=== PATIENT | male | born 1975 | race Caucasian/White ===

== ENCOUNTER 2017-04-24 11:25 | Emergency (ER) | payer BC ==
[~2017-04-24] VITALS: Ht 177.8 cm; Wt 117.9 kg
[2017-04-24 11:50] VITALS: BP 125/82
[2017-04-24] MEDS ORDERED: SULF1TAB24 PO (12:23)
[2017-04-24] MEDS ORDERED: NAPR500T PO (12:24)
--- NOTE | 2017-04-24 12:24 | PHYS DOC ---
Past Medical History Past Medical History: No Pertinent History Past Surgical History: No Surgical History Alcohol Use: None Drug Use: None Adult General Chief Complaint Chief Complaint: INSECT BITE [facility] HPI Patient is a 41 year old male presents to the emergency department with complaints of an insect bite to the right upper back. He states 2 days ago he believes he was bitten by an insect. He states yesterday his sister squeezed on the site and there was a small amount of purulent discharge. He states today the site is more tender and seems of gotten bigger. He reports no fever, no headache, lightheadedness, nausea, no vomiting. Review of Systems Review of Systems Constitutional: Denies fever or chills [] Eyes: Denies change in visual acuity, redness, or eye pain [] HENT: Denies nasal congestion or sore throat [] Respiratory: Denies cough or shortness of breath [] Cardiovascular: No additional information not addressed in HPI [] GI: Denies abdominal pain, nausea, vomiting, bloody stools or diarrhea [] : Denies dysuria or hematuria [] Musculoskeletal: Denies back pain or joint pain [] Integument: Insect bite Neurologic: Denies headache, focal weakness or sensory changes [] Endocrine: Denies polyuria or polydipsia [] Allergies Allergies Allergies Coded Allergies Type Severity Reaction Last Updated Verified No Known Drug Allergies 05/22/15 No Physical Exam Physical Exam Constitutional: Well developed, well nourished, no acute distress, non-toxic appearance. [] Skin: Warm, dry, right upper back, 2 cm area of erythema with surrounding 2 cm of induration. There is a central pustule. There is no fluctuance. Patient has no lymphadenopathy Current Patient Data Vital Signs Vital Signs Date Time Temp Pulse Resp B/P (MAP) Pulse Ox O2 Delivery O2 Flow Rate FiO2 04/24/17 11:50 98.1 94 18 95 Room Air 98.1 EKG EKG [] Radiology/Procedures Radiology/Procedures The wound was cleansed with Betadine. The small pustule ruptured. There was no further drainage. [] Course & Med Decision Making Course & Med Decision Making Pertinent Labs and Imaging studies reviewed. (See chart for details) [] Dragon Disclaimer Dragon Disclaimer This electronic medical record was generated, in whole or in part, using a voice recognition dictation system. Departure Departure Impression: Primary Impression: Abscess or cellulitis of back Disposition: 01 HOME, SELF-CARE Condition: STABLE Referrals: CLIFFORD LOREDO PA-C (PCP) Patient Instructions: Cellulitis Scripts Naproxen (NAPROSYN) 500 Mg Tablet 500 MG PO BID, #20 TAB Prov: CONNIE DUMONT APRN 04/24/17 Sulfamethoxazole/Trimethoprim (BACTRIM DS TABLET) 1 Each Tablet 1 TAB PO BID, #20 TAB Prov: CONNIE DUMONT APRN 04/24/17 CONNIE DUMONT APRN Apr 24, 2017 12:24
== END 2017-04-24 12:35 | disposition home or self-care (01) ==
LOC: ER 11:25
DX: L02.212 Cutaneous abscess of back [any part, except buttock and flank] (principal); W57.XXXA Bitten or stung by nonvenomous insect and other nonvenomous arthropods, initial encounter; Y93.89 Activity, other specified; Y99.8 Other external cause status; Y92.89 Other specified places as the place of occurrence of the external cause
CPT/HCPCS: 99283

== ENCOUNTER → 2022-02-10 | Outpatient (CLI) | payer BC ==
[~2022-02-10] MED LIST: CELE200C PO; CRESTOR5 MG PO; DULA1.5P SQ; INSU100V37 SQ; LISI10TA16 PO; MAGN400C PO; METF10007 PO; NAPR-683 PO; PERFLUTREN PROTEIN-A MICROSPHR 0.22 MG/ML 3 ML VIAL. IVP ONE; POTA-112 PO; POTA8CAP19 PO; SULF1TAB24 PO; VITA25006 PO
--- NOTE | 2022-02-10 16:38 | CARD ---
MR#: [id number] Date of Study: 02/10/2022 Ordering Physician: FRANCESCA MAYER, Referring Physician: FRANCESCA MAYER, Tech: Karolina Ortez [facility] APPROVED REPORT EXAM: Two-dimensional and M-mode echocardiogram with Doppler and color Doppler. Other Information Quality : Technically LimitedHR: 75bpm Rhythm : NSRTechnically limited study due to body habitus. INDICATION Hypertension/HCVD RISK FACTORS Hypertension Obesity 2D DIMENSIONS RVDd3.6 (2.9-3.5cm)Left Atrium(2D)3.1 (1.6-4.0cm) IVSd1.2 (0.7-1.1cm)Aortic Root(2D)3.0 (2.0-3.7cm) LVDd4.7 (3.9-5.9cm)LVOT Diameter2.3 (1.8-2.4cm) PWd1.2 (0.7-1.1cm)IVSs1.3 (0.8-1.2cm) LVDs3.2 (2.5-4.0cm)FS (%) 32.1 % PWs1.7 (0.8-1.2cm)SV60.9 ml LVEF(%)60.3 (>50%) Aortic Valve AoV Peak Earnest.123.6cm/sAoV VTI21.8cm AO Peak GR.6.1mmHgLVOT Peak Earnest.109.3cm/s LVOT VTI 21.68cmAO Mean GR.3mmHg KOURTNEY (VMAX)3.73pn7LKE (VTI)3.98cm2 Mitral Valve MV E Dqceyham92.8cm/sMV DECEL [id number] MV A Vmemkcyg19.6cm/sMV [id number] E/A Ratio0.9MVA (PHT)2.86cm2 TDI E/Lateral E'4.4E/Medial E'5.8 Pulmonary Valve PV Peak Zusfxbjr72.9cm/sPV Peak Grad.4mmHg LEFT VENTRICLE The left ventricle is normal size. There is normal left ventricular wall thickness. The left ventricu lar systolic function is normal and the ejection fraction is within normal range. Estimated ejection fraction 60%. There is normal LV segmental wall motion. Transmitral Doppler flow pattern is Grade I-a bnormal relaxation pattern. RIGHT VENTRICLE The right ventricle is mildly to moderately dilated. There is normal right ventricular wall thickness . The right ventricular systolic function is normal. ATRIA The left atrium is mildly dilated. The right atrium is mildly dilated. The interatrial septum is inta ct with no evidence for an atrial septal defect or patent foramen ovale as noted on 2-D or Doppler im aging. AORTIC VALVE The aortic valve is normal in structure and function. Doppler and Color Flow revealed no significant aortic regurgitation. There is no significant aortic valvular stenosis. MITRAL VALVE The mitral valve is normal in structure and function. There is no evidence of mitral valve prolapse. There is no mitral valve stenosis. Doppler and Color Flow revealed no mitral valve regurgitation note d. TRICUSPID VALVE The tricuspid valve is normal in structure and function. Doppler and Color Flow revealed no tricuspid valve regurgitation noted. There is no tricuspid valve stenosis. PULMONIC VALVE Doppler and Color Flow revealed no pulmonic valvular regurgitation. There is no pulmonic valvular pam nosis. GREAT VESSELS The aortic root is normal in size. The ascending aorta is normal in size. The IVC is normal in size a nd collapses >50% with inspiration. PERICARDIAL EFFUSION There is no evidence of significant pericardial effusion. Critical Notification Critical Value: No <Conclusion> The left ventricular systolic function is normal and the ejection fraction is within normal range. E stimated ejection fraction 60%. There is normal LV segmental wall motion. The right ventricle is mildly to moderately dilated. Signed by : Manuel Gallardo, Electronically Approved : 02/10/2022 16:37:48
== END ==
LOC: ECHO 09:39
PROVIDERS: ATTEND Internal Medicine Cardiovascular Disease
DX: I51.7 Cardiomegaly (principal); R01.1 Cardiac murmur, unspecified
CPT/HCPCS: 93306; Q9956; C8929